=== PATIENT | female | born 1975 | race Caucasian/White ===

== ENCOUNTER 2016-08-28 19:38 | Emergency (ER) | payer OTHER ==
[2016-08-28 19:49] VITALS: BP 138/90; PULSE 83; TEMP 98.5; BMI 37.5
[2016-08-28] MEDS ORDERED: ALBUTEROL SO4 2.5/IPRATROPIUM 0.5 INH SOL 3 ML VIAL.NEB. NEB ONE (20:19)
--- NOTE | 2016-08-28 20:24 | PDOC ---
History of Present Illness - General Chief Complaint: Asthma Stated Complaint: ASTHMA Time Seen by Provider: 08/28/16 20:06 History Source: Patient Exam Limitations: No Limitations - History of Present Illness Initial Comments: 08/28/16 20:20 My Chief Complaint:, Wheezing, upper back discomfort, cough History of present illness: Pt. is a 41-year-old female with a history of asthma Of wheezing with shortness of breath and upper back discomfort with chest tightness since yesterday. Patient reports using her nebulizer once today. Patient also uses Advair discus 250 mcg/50 mcg 1 puff twice a day. Denies any fever. Patient reports feeling generally weaker than usual. Patient denies that anyone is sick in her home. Patient denies any recent travel. Timing/Duration: getting worse Severity: moderate Associated Symptoms: reports: cough (greenish), shortness of breath, other ( wheezing ) Past History - Past Medical History Allergies/Adverse Reactions: Allergies Allergy/AdvReac Type Severity Reaction Status Date / Time No Known Allergies Allergy Verified 08/28/16 19:47 Home Medications: Ambulatory Orders Albuterol 0.083% Nebulizer Ashli [Ventolin 0.083% Nebulizer Soln -] 1 neb NEB Q4H PRN #1 vial 08/28/16 Albuterol Sulfate Inhaler - [Ventolin HFA Inhaler -] 2 inh IH Q4H PRN #1 inh 01/06 Azithromycin [Zithromax 250mg Tablets -] 250 mg PO UTDICT #6 tab 08/28/16 Asthma: Yes - Immunization History Immunization Up to Date: Yes - Psycho/Social/Smoking Cessation Hx Anxiety: No Suicidal Ideation: No Smoking Status: No Smoking History: Never smoked Number of Cigarettes Smoked Daily: 0 Hx Alcohol Use: No Review of Systems - Review of Systems Able to Perform ROS?: Yes Constitutional: Yes: Weakness (generalized today ) HEENTM: Yes: Nose Congestion (slight) Respiratory: Yes: SOB with Exertion, Wheezing, Productive cough (greenish ) Cardiac (ROS): No: Symptoms Reported ABD/GI: No: Symptoms Reported : No: Symptoms Reported Musculoskeletal: Yes: Back Pain (b/l upper back ) Integumentary: No: Symptoms Reported Neurological: No: Symptoms reported *Physical Exam - Vital Signs Last Vital Signs Temp Pulse Resp BP Pulse Ox 98.5 F 83 20 138/90 98 08/28/16 19:47 08/28/16 19:47 08/28/16 19:47 08/28/16 19:47 08/28/16 19:47 - Physical Exam General Appearance: Yes: Appropriately Dressed HEENT: positive: TMs Normal, Nasal Congestion, Rhinorrhea (minimal b/l ). negative: Pharyngeal Erythema, Tonsillar Exudate, Tonsillar Erythema Neck: negative: Lymphadenopathy (R), Lymphadenopathy (L) Respiratory/Chest: positive: Decreased Breath Sounds (b/l ), Other (after neb CTA b/l ). negative: Accessory Muscle Use Cardiovascular: positive: Regular Rhythm, Regular Rate, S1, S2 Integumentary: positive: Normal Color Neurologic: positive: Alert, Normal Response, Responsive Medical Decision Making - Medical Decision Making 08/28/16 20:23 Pt. is a 41-year-old female with a history of asthma Of wheezing with shortness of breath and upper back discomfort with chest tightness since yesterday. Patient reports using her nebulizer once today. Patient also uses Advair discus 250 mcg/50 mcg 1 puff twice a day. Denies any fever. Patient reports feeling generally weaker than usual. Patient denies that anyone is sick in her home. Patient denies any recent travel. 08/28/16 20:25 asthma exacerbation PLAN: duoneb now azithromycin 250 mg 2 tabs today than one daily for following 4 days follow up with primary care provider within next 2 day s 08/28/16 20:48 feeling much better lungs CTA b/l *DC/Admit/Observation/Transfer Diagnosis at time of Disposition: Asthma exacerbation Qualifiers: Asthma severity: unspecified severity Qualified Code(s): J45.901 - Unspecified asthma with (acute) exacerbation - Discharge Dispostion Disposition: HOME Condition at time of disposition: Stable - Prescriptions Prescriptions: Albuterol 0.083% Nebulizer Ashli [Ventolin 0.083% Nebulizer Soln -] 1 neb NEB Q4H PRN #1 vial PRN Reason: Short Of Breath/Wheezing Albuterol Sulfate Inhaler - [Ventolin HFA Inhaler -] 2 inh IH Q4H PRN #1 inh PRN Reason: Short Of Breath/Wheezing Azithromycin [Zithromax 250mg Tablets -] 250 mg PO UTDICT #6 tab - Referrals Referrals: Anni Martines [Primary Care Provider] - - Patient Instructions Additional Instructions: Follow-up with your primary care provider within the next 2 days Return to emergency room if symptoms worsen any shortness of breath or any new symptoms develop Drink a lot a fluids and rest Use your pumps as previously ordered and nebulizer Patient voiced understanding of discharge instructions and all questions were answered
== END 2016-08-28 21:22 | disposition home or self-care (01) ==
LOC: JERFT 19:38
PROC: 3E0F7GC Introduction of Other Therapeutic Substance into Respiratory Tract, Via Natural or Artificial Opening (ICD-10-PCS; principal; 2016-08-28)
DX: J45.901 Unspecified asthma with (acute) exacerbation (principal)
CPT/HCPCS: 94640; 99281-25

== ENCOUNTER 2017-05-13 10:12 | Emergency (ER) | payer OTHER ==
[2017-05-13 10:22] VITALS: BMI 37.5
--- NOTE | 2017-05-13 14:18 | PDOC ---
History of Present Illness - General Chief Complaint: Rectal Bleed Stated Complaint: RECTAL BLEED Time Seen by Provider: 05/13/17 13:53 History Source: Patient - History of Present Illness Timing/Duration: reports: intermittent Past History - Past Medical History Allergies/Adverse Reactions: Allergies Allergy/AdvReac Type Severity Reaction Status Date / Time No Known Allergies Allergy Verified 05/13/17 10:17 Home Medications: Ambulatory Orders Albuterol 0.083% Nebulizer Ashli [Ventolin 0.083% Nebulizer Soln -] 1 neb NEB Q4H PRN #1 vial 08/28/16 Albuterol Sulfate Inhaler - [Ventolin HFA Inhaler -] 2 inh IH Q4H PRN #1 inh 01/06 Azithromycin [Zithromax 250mg Tablets -] 250 mg PO UTDICT #6 tab 08/28/16 Asthma: Yes COPD: No - Immunization History Immunization Up to Date: Yes - Suicide/Smoking/Psychosocial Hx Smoking Status: No Smoking History: Never smoked Have you smoked in the past 12 months: No Number of Cigarettes Smoked Daily: 0 Information on smoking cessation initiated: No Hx Alcohol Use: No Drug/Substance Use Hx: No Substance Use Type: None Review of Systems - Review of Systems Constitutional: No: Chills, Fever, Weakness Respiratory: No: Shortness of Breath Cardiac (ROS): No: Chest Pain ABD/GI: No: Constipated, Diarrhea, Nausea, Vomiting *Physical Exam - Vital Signs Last Vital Signs Temp Pulse Resp BP Pulse Ox 98.8 F 82 18 115/82 100 05/13/17 10:18 05/13/17 10:18 05/13/17 10:18 05/13/17 10:18 05/13/17 10:18 - Physical Exam General Appearance: Yes: Appropriately Dressed. No: Apparent Distress HEENT: positive: Normal Voice Neck: positive: Supple Respiratory/Chest: negative: Respiratory Distress Gastrointestinal/Abdominal: positive: Soft. negative: Tender Rectal Exam: positive: other (trace BRB mixed w/ brown stool, no melena, external hemorrhoid or fissure) ED Treatment Course - LABORATORY CBC & Chemistry Diagram: 05/13/17 14:20 05/13/17 14:20 Medical Decision Making - Medical Decision Making 05/13/17 14:09 42-year-old female, history of asthma, presents with bright red blood per rectum. Patient states she's had about 7 episodes of bright red blood with bowel movement since yesterday. Denies melena or hemorrhoids. States she also has some vague lower abdominal pain. No diarrhea, constipation, nausea, vomiting, fever or chills. Patient admits that she's had similar episode throughout the past year or 2 that usually self resolves and has never been medically evaluated. States she decided to come in this time because of the abdominal pain which she usually does not have. Patient has had an endoscopy in the past with negative results, but has never had a colonoscopy. Denies unexplained weight loss and no significant family history. See exam Stable GIB Well chino and stable in ED w/ benign abd Possible diverticulosis vs internal hemorrhoid -labs -anticipate discharge w/ PMD f/u 05/13/17 14:19 05/13/17 14:45 Blood work normal. Patient has remained well-appearing and stable in ED. Will discharge to follow-up with her primary care physician *DC/Admit/Observation/Transfer Diagnosis at time of Disposition: Hematochezia - Discharge Dispostion Disposition: HOME Condition at time of disposition: Good - Referrals Referrals: Anni Martines [Primary Care Provider] - - Patient Instructions Printed Discharge Instructions: DI for Rectal Bleeding, DI for Diverticulosis Additional Instructions: Carrington sangrado rectal posiblemente se deba a diverticulosis, que son desplazamientos en el colon que pueden deberse a la edad o a la baja cantidad de fibra en la dieta. Tambin puede tener hemorroides internas. Carrington anlisis de ivan fue normal. Si los sntomas empeoran y tiene dolor abdominal intenso, v mitos, fiebre, debilidad o mareos, regrese a la aric de emergencias inmediatamente. De lo contrario, hussein un seguimiento con carrington mdico Print Language: ERITREAN - Post Discharge Activity
[2017-05-13 14:29] LABS: BASO % 0.5 % (0-2.0); EOS % 6.8 % (0-4.5); HEMATOCRIT 40.3 % (32.4-45.2); HEMOGLOBIN 13.4 GM/dL (10.7-15.3); LYMPH % 30.4 % (8-40); MCH 29.1 pg (25.7-33.7); MCHC 33.2 g/dl (32.0-36.0); MEAN CELL VOLUME 87.8 fl (80-96); MEAN PLT VOLUME 8.9 fl (7.5-11.1); MONO % 5.7 % (3.8-10.2); NEUT % 56.6 % (42.8-82.8); PLATELET COUNT 285 K/MM3 (134-434); RBC 4.58 M/mm3 (3.60-5.2); RDW 13.3 % (11.6-15.6); WHITE BLOOD COUNT 10.1 K/mm3 (4.0-10.0)
[2017-05-13 14:51] LABS: ALBUMIN 3.6 g/dl (3.4-5.0); ALK PHOS 88 U/L (45-117); ANION GAP 7 (8-16); BILIRUBIN,TOTAL 0.6 mg/dL (0.2-1.0); BLOOD UREA NITROGEN 11 mg/dL (7-18); CALCIUM 8.9 mg/dL (8.5-10.1); CHLORIDE 105 mmol/L (98-107); CO2 27 mmol/L (21-32); CREATININE 0.8 mg/dL (0.55-1.02); GLUCOSE,RANDOM 85 mg/dL (74-106); POTASSIUM 4.3 mmol/L (3.5-5.1); SGOT/AST 9 U/L (15-37); SGPT/ALT 33 U/L (12-78); SODIUM 139 mmol/L (136-145); TOT PROT 7.4 g/dl (6.4-8.2)
[2017-05-13 16:06] VITALS: BP 110/75; PULSE 81; TEMP 98.1
== END 2017-05-13 16:30 | disposition home or self-care (01) ==
LOC: JER 10:12
DX: K92.1 Melena (principal); J45.909 Unspecified asthma, uncomplicated
CPT/HCPCS: 36415; 80053; 82272; 85025; 99283-25

== ENCOUNTER 2017-09-03 15:29 | Emergency (ER) | payer OTHER ==
[2017-09-03 15:46] VITALS: BP 152/78; PULSE 81; TEMP 98.4; BMI 37.8
--- NOTE | 2017-09-03 15:47 | PDOC ---
Rapid Medical Evaluation Time Seen by Provider: 09/03/17 15:43 Medical Evaluation: Allergies Allergy/AdvReac Type Severity Reaction Status Date / Time No Known Allergies Allergy Verified 09/03/17 15:42 09/03/17 15:43 I have performed a brief in-person evaluation of this patient. The patient presents with a chief complaint of: non productive coughing and pain in upper back, both sides since Saturday Reports using pump with no relief. Pertinent physical exam findings: NAD unlabored breathing, clear bilateral lungs, non tender chest I have ordered the following: chest xray The patient will proceed to the ED for further evaluation.
[2017-09-03] MEDS ORDERED: KETOROLAC TROMETHAMINE 60 MG/2 ML VIAL IM ONE (16:45)
[2017-09-03] MEDS ORDERED: TIZANIDINE HCL 4 MG TABLET PO ONE (16:46)
--- NOTE | 2017-09-03 16:47 | PDOC ---
History of Present Illness - General Chief Complaint: Respiratory Stated Complaint: BACK PAIN, SOB Time Seen by Provider: 09/03/17 15:43 - History of Present Illness Initial Comments: 42-year-old female presents for evaluation of back pain for 3 days after doing increased housework. She points to the area between her scapula as the area of her discomfort pain is described as achy exacerbated with motion relieved with rest free of radiation. 09/03/17 16:42 Past History - Past Medical History Allergies/Adverse Reactions: Allergies Allergy/AdvReac Type Severity Reaction Status Date / Time No Known Allergies Allergy Verified 09/03/17 15:42 Home Medications: Ambulatory Orders Cyclobenzaprine HCl [Flexeril 10 mg] 10 mg PO HS PRN #20 tablet 09/03/17 Asthma: Yes COPD: No - Immunization History Immunization Up to Date: Yes - Suicide/Smoking/Psychosocial Hx Smoking Status: No Smoking History: Never smoked Have you smoked in the past 12 months: No Number of Cigarettes Smoked Daily: 0 Hx Alcohol Use: No Drug/Substance Use Hx: No Substance Use Type: None Review of Systems - Review of Systems Musculoskeletal: Yes: Back Pain, Muscle Pain All Other Systems: Reviewed and Negative *Physical Exam - Vital Signs Last Vital Signs Temp Pulse Resp BP Pulse Ox 98.4 F 81 19 152/78 98 09/03/17 15:42 09/03/17 15:42 09/03/17 15:42 09/03/17 15:42 09/03/17 15:42 - Physical Exam Comments: Cervical spine skin color and temperature are normal. There is full nonpainful range of motion. No palpable spasm. Biceps triceps and brachial radialis reflexes are 2+ and symmetric bilaterally. There is 5 out of 5 strength and thumb extension abduction and wrist flexion and extension elbow flexion and extension. 5 out of 5 strength in deltoid. Negative Michael sign. Spurling maneuver is negative bilaterally. There are no gross sensory motor deficits. Neurovascularly intact. Lumbar spine skin color and temperature are normal. There is full nonpainful range of motion. 5 out of 5 strength in bilateral lower extremities. Patella and Achilles reflexes are 2+ and symmetric bilaterally. There is no clonus. Straight leg raise test is negative bilaterally. Thighs and calves are soft and nontender. There are no gross sensory motor deficits. Neurovascularly intact. She has tenderness and palpable spasm around the parents arrested musculature in the area of the levator scapula GENERAL: [The patient is awake, alert, and fully oriented, in no acute distress. ] HEAD: [Normal with no signs of trauma.] LUNGS: [Breath sounds equal, clear to auscultation bilaterally. No wheezes, and no crackles.] HEART: [Regular rate and rhythm, normal S1 and S2 without murmur, rub or gallop. ] ABDOMEN: [Soft, nontender, normoactive bowel sounds. No guarding, no rebound. No masses.] EXTREMITIES: [Normal range of motion, no edema. No clubbing or cyanosis. No cords, erythema, or tenderness.] PSYCH: [Normal mood, normal affect.] SKIN: [Warm, Dry, normal turgor, no rashes or lesions noted.] 09/03/17 16:43 Medical Decision Making - Medical Decision Making Patient was reevaluated after Toradol and Flexeril her symptoms have improved. 09/03/17 17:42 *DC/Admit/Observation/Transfer Diagnosis at time of Disposition: Muscle spasm - Discharge Dispostion Disposition: HOME Condition at time of disposition: Stable Decision to Admit order: No - Referrals Referrals: Anni Martines [Primary Care Provider] - Papo Gusman MD [Staff Physician] - - Patient Instructions Additional Instructions: Take Motrin for pain as well as Tylenol. I prescribed a muscle relaxer for it was well. Return to the emergency room if her symptoms worsen or go unresolved prior to follow-up with orthopedic surgery in 2-3 days. Your pain is muscular in nature and will require follow-up and additional treatment. - Post Discharge Activity
[2017-09-03] MEDS ORDERED: RANITIDINE HCL 150 MG TABLET (FP) PO ONE (16:49)
[2017-09-03] MEDS ORDERED: RANITIDINE HCL 150 MG TABLET (FP) ONE (17:03)
[2017-09-03] MEDS ORDERED: KETOROLAC TROMETHAMINE 60 MG/2 ML VIAL ONE (17:03)
== END 2017-09-03 18:01 | disposition home or self-care (01) ==
LOC: JERFT 15:29
PROC: 3E0233Z Introduction of Anti-inflammatory into Muscle, Percutaneous Approach (ICD-10-PCS; principal; 2017-09-03)
DX: M62.830 Muscle spasm of back (principal)
CPT/HCPCS: 71045-TC-FY; 96372; 99281-25

== ENCOUNTER 2017-10-05 12:50 | Emergency (ER) | payer OTHER ==
[2017-10-05 13:04] VITALS: BP 141/86; PULSE 77; TEMP 98.3; BMI 38.0
[2017-10-05] MEDS ORDERED: SODIUM CHLORIDE 1,000 ML IV SCH (14:00)
--- NOTE | 2017-10-05 14:07 | PDOC ---
History of Present Illness - History of Present Illness Initial Comments: Patient is a is a 42 liberian-speaking F, with PMHx of asthma, chronic kidney disease, who presents today for 1 day of hematochezia. She reports 3 days of abdominal pain that has since resolved. She reports 1 day of loose bloody stools. Patient states that 3 months ago she had a colonoscopy that was normal. She has a scheduled endoscopy on December 25. She denies prior history of hemorrhoids. She denies recent nausea, vomit, fever , chills. PCP: Conrad Hutton GI: Ervin Frazier 10/05/17 14:17 <Agnieszka Mcclure - Last Filed: 10/05/17 14:17> - General History Source: Patient, Family Exam Limitations: No Limitations <Salo Telles - Last Filed: 10/05/17 18:56> - General Chief Complaint: Rectal Bleed Stated Complaint: RECTAL BLEEDING Time Seen by Provider: 10/05/17 13:35 Past History <Agnieszka Mcclure - Last Filed: 10/05/17 14:17> - Past Medical History Asthma: Yes COPD: No - Immunization History Immunization Up to Date: Yes - Suicide/Smoking/Psychosocial Hx Smoking Status: No Smoking History: Never smoked Have you smoked in the past 12 months: No Number of Cigarettes Smoked Daily: 0 Hx Alcohol Use: No Drug/Substance Use Hx: No Substance Use Type: None <Salo Telles - Last Filed: 10/05/17 18:56> - Past Medical History Allergies/Adverse Reactions: Allergies Allergy/AdvReac Type Severity Reaction Status Date / Time No Known Allergies Allergy Verified 10/05/17 13:04 Home Medications: Ambulatory Orders Cyclobenzaprine HCl [Flexeril 10 mg] 10 mg PO HS PRN #20 tablet 09/03/17 Docusate Sodium [Colace] 100 mg PO Q8H PRN #21 capsule 10/05/17 Phenyleph/Mineral Oil/Petrolat [Preparation H Ointment] 1 applic RC BID #1 oint 10/05/17 Review of Systems - Review of Systems Comments:: GENERAL/CONSTITUTIONAL: No fever or chills. No weakness. HEAD, EYES, EARS, NOSE AND THROAT: No change in vision. No ear pain or discharge. No sore throat. CARDIOVASCULAR: No chest pain or shortness of breath. RESPIRATORY: No cough, wheezing, or hemoptysis. GASTROINTESTINAL: No nausea, vomiting, +diarrhea, +hematochezia, no constipation. GENITOURINARY: No dysuria, frequency, or change in urination. MUSCULOSKELETAL: No joint or muscle swelling or pain. No neck or back pain. SKIN: No rash NEUROLOGIC: No headache, vertigo, loss of consciousness, or change in strength/ sensation. ENDOCRINE: No increased thirst. No abnormal weight change. HEMATOLOGIC/LYMPHATIC: No anemia, easy bleeding, or history of blood clots. ALLERGIC/IMMUNOLOGIC: No hives or skin allergy. 10/05/17 14:19 <Agnieszka Mcclure - Last Filed: 10/05/17 14:17> *Physical Exam - Vital Signs Last Vital Signs Temp Pulse Resp BP Pulse Ox 98.3 F 77 18 141/86 99 10/05/17 13:02 10/05/17 13:02 10/05/17 13:02 10/05/17 13:02 10/05/17 13:02 - Physical Exam Comments: GENERAL: Awake, alert, and fully oriented, in no acute distress HEAD: No signs of trauma EYES: PERRLA, EOMI, sclera anicteric, conjunctiva clear ENT: Auricles normal inspection, hearing grossly normal, nares patent. Moist mucosa NECK: Normal ROM, supple, no lymphadenopathy, JVD, or masses LUNGS: Breath sounds equal, clear to auscultation bilaterally. No wheezes, and no crackles HEART: Regular rate and rhythm, normal S1 and S2, no murmurs, rubs or gallops ABDOMEN: Soft, obese, nontender. No guarding, no rebound. No masses EXTREMITIES: Normal range of motion, no edema. No clubbing or cyanosis. No cords, erythema, or tenderness NEUROLOGICAL: Cranial nerves II through XII grossly intact. Normal speech. SKIN: Warm, Dry, normal turgor, no rashes or lesions noted. Rectal Exam: No stool or blood on glove. Painless small external hemorrhoids. Good rectal tone. 10/05/17 14:20 <Agnieszka Mcclure - Last Filed: 10/05/17 14:17> - Vital Signs Last Vital Signs Temp Pulse Resp BP Pulse Ox 98.3 F 77 18 141/86 99 10/05/17 13:02 10/05/17 13:02 10/05/17 13:02 10/05/17 13:02 10/05/17 13:02 <Salo Telles - Last Filed: 10/05/17 18:56> ED Treatment Course - LABORATORY CBC & Chemistry Diagram: 10/05/17 13:46 10/05/17 13:46 - RADIOLOGY Radiology Studies Ordered: Category Date Time Status ABDOMEN & PELVIS CT WITH CONTR [CT] Stat CT Scan 10/05/17 13:46 Ordered <Salo Telles - Last Filed: 10/05/17 18:56> Medical Decision Making - Medical Decision Making 10/05/17 14:07 A portion of this note was documented by scribe services under my direction. I have reviewed the details of the note, within reason, and agree with the documentation with the following case summary and management plan written by me. Patient treated in the ED. Nursing notes are reviewed and incorporated into the medical decision-making. Vital signs reviewed. Peripheral IV access obtained by the nurse, laboratory studies are drawn and sent, reviewed and interpreted by myself. Vital Signs Temp Pulse Resp BP Pulse Ox 98.3 F 77 18 141/86 99 10/05/17 13:02 10/05/17 13:02 10/05/17 13:02 10/05/17 13:02 10/05/17 13:02 42-year-old female with past medical history of asthma, chronic kidney disease presents with rectal bleeding. The patient reports that for the last 3 days she' s been having for quadrant discomfort and today had loose stools with blood in them. Reports that the rectal movement was bloodless. No fevers or chills. Denies abdominal pain now. Patient did have a colonoscopy reportedly [address] Frazier was reportedly negative. Patient is scheduled for an endoscopy in December. We'll need to further investigate this with a CAT scan and pelvis. Differential includes hemorrhoidal bleed, diverticular bleed, colon cancer. We'll obtain labs , CAT scan and pelvis and reassess. 10/05/17 18:45 CBC, BMP 10/05/17 13:46 10/05/17 13:46 CMP Sodium 139 mmol/L (136-145) 10/05/17 13:46 Potassium 4.4 mmol/L (3.5-5.1) 10/05/17 13:46 Chloride 107 mmol/L (98-107) 10/05/17 13:46 Carbon Dioxide 27 mmol/L (21-32) 10/05/17 13:46 Anion Gap 5 (8-16) L 10/05/17 13:46 BUN 11 mg/dL (7-18) 10/05/17 13:46 Creatinine 0.8 mg/dL (0.55-1.02) 10/05/17 13:46 Creat Clearance w eGFR > 60 (>60) 10/05/17 13:46 Random Glucose 82 mg/dL (74-106) 10/05/17 13:46 Calcium 8.6 mg/dL (8.5-10.1) 10/05/17 13:46 Total Bilirubin 0.7 mg/dL (0.2-1.0) 10/05/17 13:46 AST 6 U/L (15-37) L 10/05/17 13:46 ALT 25 U/L (12-78) 10/05/17 13:46 Alkaline Phosphatase 83 U/L (45-117) 10/05/17 13:46 Total Protein 6.9 g/dl (6.4-8.2) 10/05/17 13:46 Albumin 3.2 g/dl (3.4-5.0) L 10/05/17 13:46 Lipase 704 U/L (73-393) H 10/05/17 13:46 Urine Test Results Urine Color Ltyellow 10/05/17 13:46 Urine Appearance Clear 10/05/17 13:46 Urine pH 7.0 (5.0-8.0) 10/05/17 13:46 Ur Specific [place] 1.016 (1.001-1.035) 10/05/17 13:46 Urine Protein Negative (NEGATIVE) 10/05/17 13:46 Urine Glucose (UA) Negative (NEGATIVE) 10/05/17 13:46 Urine Ketones Negative (NEGATIVE) 10/05/17 13:46 Urine Blood 1+ (NEGATIVE) H 10/05/17 13:46 Urine Nitrite Negative (NEGATIVE) 10/05/17 13:46 Urine Bilirubin Negative (<2.0 mg/dL) 10/05/17 13:46 Ur Leukocyte Esterase Negative (NEGATIVE) 10/05/17 13:46 Ur Epithelial Cells Rare /HPF (FEW) 10/05/17 13:46 Pt with elevated lipase but without nausea, vomiting, or abdominal pain. No CT evidence of pancreatitis, diverticula, or colitis. I do not suspect pancreatitis at this time. Will have patient follow up with DR. Frazier. The CT did incidentally find a potential left ovary lesion. Transvaginal ultrasound obtained and results pending. If the transvaginal ultrasound is unremarkable, the patient can be discharged home. I advised the patient that she should follow up with Dr. Frazier. It may be possible that the bleeding was from the hemorrhoids. Will prescribe colace and sitz bath and have the patient call Dr. Frazier. Pt will benefit from an evaluation by GI. Pt verbalizes understanding and agrees with plan. <Salo Telles - Last Filed: 10/05/17 18:56> *DC/Admit/Observation/Transfer - Attestations Scribe Attestion: 10/05/17 14:22 Documentation prepared by Agnieszka Mcclure, acting as medical office technician for Salo Telles MD. <Agnieszka Mcclure - Last Filed: 10/05/17 14:17> <Salo Telles - Last Filed: 10/05/17 18:56> Diagnosis at time of Disposition: Rectal bleed - Discharge Dispostion Condition at time of disposition: Stable - Prescriptions Prescriptions: Docusate Sodium [Colace] 100 mg PO Q8H PRN #21 capsule PRN Reason: Stool softener Phenyleph/Mineral Oil/Petrolat [Preparation H Ointment] 1 applic RC BID #1 oint - Referrals Referrals: Anni Martines [Primary Care Provider] - Ervin Frazier MD [Staff Physician] - - Patient Instructions Printed Discharge Instructions: DI for Rectal Bleeding Additional Instructions: Please use a sitz bath every 8 hours for several times a day. Use the stool softener colace 100 mg every 8 hours. Use preparation H every 12 hours for hemorrhoids. Please follow up with Dr. Frazier. Call on Saturday to schedule an appointment. You may potentially need another colonscopy. Print Language: BELARUSIAN - Post Discharge Activity
[2017-10-05 14:28] LABS: BASO % 0.6 % (0-2.0); EOS % 5.3 % (0-4.5); HEMATOCRIT 38.8 % (32.4-45.2); HEMOGLOBIN 13.1 GM/dL (10.7-15.3); LYMPH % 25.7 % (8-40); MCH 29.4 pg (25.7-33.7); MCHC 33.9 g/dl (32.0-36.0); MEAN CELL VOLUME 86.7 fl (80-96); MEAN PLT VOLUME 9.1 fl (7.5-11.1); MONO % 6.1 % (3.8-10.2); NEUT % 62.3 % (42.8-82.8); PLATELET COUNT 289 K/MM3 (134-434); RBC 4.47 M/mm3 (3.60-5.2); RDW 13.7 % (11.6-15.6); WHITE BLOOD COUNT 11.4 K/mm3 (4.0-10.0)
[2017-10-05 14:52] LABS: ALBUMIN 3.2 g/dl (3.4-5.0); ALK PHOS 83 U/L (45-117); ANION GAP 5 (8-16); BILIRUBIN,TOTAL 0.7 mg/dL (0.2-1.0); BLOOD UREA NITROGEN 11 mg/dL (7-18); CALCIUM 8.6 mg/dL (8.5-10.1); CHLORIDE 107 mmol/L (98-107); CO2 27 mmol/L (21-32); CREATININE 0.8 mg/dL (0.55-1.02); GLUCOSE,RANDOM 82 mg/dL (74-106); POTASSIUM 4.4 mmol/L (3.5-5.1); SGOT/AST 6 U/L (15-37); SGPT/ALT 25 U/L (12-78); SODIUM 139 mmol/L (136-145); TOT PROT 6.9 g/dl (6.4-8.2)
[2017-10-05 14:53] LABS: LIPASE 704 U/L (73-393)
[2017-10-05 14:54] LABS: INR 1.06 (0.82-1.09)
[2017-10-05 14:57] LABS: ACTIVATED PTT 32.7 SECONDS (25.2-36.5)
[2017-10-05 15:14] LABS: URINE APPEARANCE CLEAR; URINE BILIRUBIN NEGATIVE (<2.0 mg/dL); URINE COLOR LTYELLOW; URINE GLUCOSE (UA) NEGATIVE (NEGATIVE); URINE KETONE NEGATIVE (NEGATIVE); URINE LEUK ESTERASE NEGATIVE (NEGATIVE); URINE NITRITE NEGATIVE (NEGATIVE); URINE PROTEIN NEGATIVE (NEGATIVE); URINE UROBILINOGEN NEGATIVE mg/dL (0.2-1.0)
[2017-10-05 15:50] LABS: EPI CELLS RARE /HPF (FEW)
[2017-10-05 15:53] LABS: HCG,QUALITATIVE URINE NEGATIVE
--- NOTE | 2017-10-05 20:16 | PDOC ---
*Physical Exam - Vital Signs Last Vital Signs Temp Pulse Resp BP Pulse Ox 98.3 F 77 18 141/86 99 10/05/17 13:02 10/05/17 13:02 10/05/17 13:02 10/05/17 13:02 10/05/17 13:02 ED Treatment Course - LABORATORY CBC & Chemistry Diagram: 10/05/17 13:46 10/05/17 13:46 - ADDITIONAL ORDERS Additional order review: Laboratory Results 10/05/17 10/05/17 10/05/17 14:25 14:22 13:46 PT with INR 12.00 INR 1.06 PTT (Actin FS) 32.7 Sodium 139 Potassium 4.4 Chloride 107 Carbon Dioxide 27 Anion Gap 5 L BUN 11 Creatinine 0.8 Creat Clearance w eGFR > 60 Random Glucose 82 Calcium 8.6 Total Bilirubin 0.7 AST 6 L ALT 25 Alkaline Phosphatase 83 Total Protein 6.9 Albumin 3.2 L Lipase 704 H Urine Color Urine Appearance Urine pH Ur Specific [place] Urine Protein Urine Glucose (UA) Urine Ketones Urine Blood Urine Nitrite Urine Bilirubin Urine Urobilinogen Ur Leukocyte Esterase Urine WBC (Auto) Urine RBC (Auto) Ur Epithelial Cells Urine HCG, Qual Stool Occult Blood Blood Type A POSITIVE Antibody Screen Positive H Antibody Identification Cold aggluitin Antigen Identification No Result Required. 10/05/17 10/05/17 13:46 13:45 PT with INR INR PTT (Actin FS) Sodium Potassium Chloride Carbon Dioxide Anion Gap BUN Creatinine Creat Clearance w eGFR Random Glucose Calcium Total Bilirubin AST ALT Alkaline Phosphatase Total Protein Albumin Lipase Urine Color Ltyellow Urine Appearance Clear Urine pH 7.0 Ur Specific [place] 1.016 Urine Protein Negative Urine Glucose (UA) Negative Urine Ketones Negative Urine Blood 1+ H Urine Nitrite Negative Urine Bilirubin Negative Urine Urobilinogen Negative Ur Leukocyte Esterase Negative Urine WBC (Auto) 1 Urine RBC (Auto) 3 Ur Epithelial Cells Rare Urine HCG, Qual Negative Stool Occult Blood Negative Blood Type Antibody Screen Antibody Identification Antigen Identification 10/05/17 13:46 RBC 4.47 MCV 86.7 MCHC 33.9 RDW 13.7 MPV 9.1 Neutrophils % 62.3 Lymphocytes % 25.7 Monocytes % 6.1 Eosinophils % 5.3 H Basophils % 0.6 Medical Decision Making - Medical Decision Making 10/05/17 20:14 I received this patient on sign out Pending US US demonstrate 2.2x2.0x1.9 mass, fibroid Left ovarian follicle Pt can be discharged to home *DC/Admit/Observation/Transfer Diagnosis at time of Disposition: Rectal bleed - Discharge Dispostion Disposition: HOME Condition at time of disposition: Stable Decision to Admit order: No - Prescriptions Prescriptions: Docusate Sodium [Colace] 100 mg PO Q8H PRN #21 capsule PRN Reason: Stool softener Phenyleph/Mineral Oil/Petrolat [Preparation H Ointment] 1 applic RC BID #1 oint - Referrals Referrals: Anni Martines [Primary Care Provider] - Ervin Frazier MD [Staff Physician] - - Patient Instructions Printed Discharge Instructions: DI for Rectal Bleeding Additional Instructions: Please use a sitz bath every 8 hours for several times a day. Use the stool softener colace 100 mg every 8 hours. Use preparation H every 12 hours for hemorrhoids. Please follow up with Dr. Frazier. Call on Saturday to schedule an appointment. You may potentially need another colonscopy. Print Language: FINNISH - Post Discharge Activity
--- NOTE | 2017-10-06 08:56 | EKG ---
Test Reason : Blood Pressure : / mmHG Vent. Rate : 075 BPM Atrial Rate : 075 BPM P-R Int : 148 ms QRS Dur : 060 ms QT Int : 400 ms P-R-T Axes : 046 040 036 degrees QTc Int : 446 ms NORMAL SINUS RHYTHM NORMAL ECG WHEN COMPARED WITH ECG OF 15-APR-2014 10:26, NO SIGNIFICANT CHANGE WAS FOUND Confirmed by JANEL RIVERS MD ([id number]) on 10/06/2017 8:55:49 AM Referred By: Confirmed By:JANEL RIVERS MD
== END 2017-10-05 20:38 | disposition home or self-care (01) ==
LOC: JER 12:50
PROC: 3E0337Z Introduction of Electrolytic and Water Balance Substance into Peripheral Vein, Percutaneous Approach (ICD-10-PCS; principal; 2017-10-05)
DX: K62.5 Hemorrhage of anus and rectum (principal); K64.4 Residual hemorrhoidal skin tags; J45.909 Unspecified asthma, uncomplicated; N18.9 Chronic kidney disease, unspecified; R74.8 Abnormal levels of other serum enzymes
CPT/HCPCS: 36415; 74177-TC; 76830-TC; 76856-TC; 80053; 81003; 81015; 82272; 83690; 84703; 85025; 85610; 85730; 86850; 86870; 86900; 86901; 86902; 87086; 93005; 93010; 96360; 96361; 99283-25; J7030

== ENCOUNTER 2018-01-13 00:52 | Emergency (ER) | payer OTHER ==
[2018-01-13] MEDS ORDERED: ACETAMINOPHEN 325 MG TABLET (FP) PO ONE (01:37)
[2018-01-13] MEDS ORDERED: guaiFENesin/CODEINE 10 ML UNIT-DOSE CUPS PO ONE (01:38)
--- NOTE | 2018-01-13 01:45 | PDOC ---
History of Present Illness - General History Source: Patient Exam Limitations: No Limitations - History of Present Illness Initial Comments: 01/13/18 01:47 The patient is a 42 year old female with a past medical history of asthma who presents to the emergency department for evaluation of a 4 day history of coughing with associated back pain. The patient reports moderate back pain beginning since since with associated non productive cough. She reports an associated symptom of subjective fever. Patient reports taking nebulizer treatment at 8pm and tylenol earlier in the day. Patients LMP was on 01/10/18. Patients daughter is currently experiencing similar symptoms. The patient denies headache, dizziness, chills, nausea, vomiting, diarrhea, constipation, and any urinary symptoms. Allergies: NKDA Social History: No reported alcohol, cigarette, or drug use. Surgical History: Tubal ligation. PCP: Not on staff. <Myriam Sanchez - Last Filed: 01/13/18 01:47> <Sosa Moore - Last Filed: 01/13/18 02:24> - General Stated Complaint: BACK PAIN Time Seen by Provider: 01/13/18 01:28 Past History <Myriam Sanchez - Last Filed: 01/13/18 01:47> - Past Medical History Asthma: Yes COPD: No - Immunization History Immunization Up to Date: Yes - Suicide/Smoking/Psychosocial Hx Smoking Status: No Smoking History: Never smoked Have you smoked in the past 12 months: No Number of Cigarettes Smoked Daily: 0 Hx Alcohol Use: No Drug/Substance Use Hx: No Substance Use Type: None <Sosa Moore - Last Filed: 01/13/18 02:24> - Past Medical History Allergies/Adverse Reactions: Allergies Allergy/AdvReac Type Severity Reaction Status Date / Time No Known Allergies Allergy Verified 01/13/18 01:55 Home Medications: Ambulatory Orders Cyclobenzaprine HCl [Flexeril 10 mg] 10 mg PO HS PRN #20 tablet 09/03/17 Docusate Sodium [Colace] 100 mg PO Q8H PRN #21 capsule 10/05/17 Phenyleph/Mineral Oil/Petrolat [Preparation H Ointment] 1 applic RC BID #1 oint 10/05/17 Albuterol Sulfate Inhaler - [Ventolin Hfa Inhaler -] 1 - 2 inh PO Q4H PRN #1 inhaler 01/13/18 Guaifenesin [Robitussin] 100 mg PO Q6H PRN #60 ml 01/13/18 Review of Systems - Review of Systems Able to Perform ROS?: Yes Comments:: CONSTITUTIONAL: (+)fevers. Absent: chills, diaphoresis, generalized weakness, malaise, loss of appetite HEENT: Absent: rhinorrhea, nasal congestion, throat pain, throat swelling, difficulty swallowing, mouth swelling, ear pain, eye pain, visual Changes CARDIOVASCULAR: Absent: chest pain, syncope, palpitations, irregular heart rate, lightheadedness , peripheral edema RESPIRATORY: (+)Difficulty breathing. (+)Cough. Absent: dyspnea with exertion, orthopnea, wheezing, stridor, hemoptysis GASTROINTESTINAL: Absent: abdominal pain, abdominal distension, nausea, vomiting, diarrhea, constipation, melena, hematochezia GENITOURINARY: Absent: dysuria, frequency, urgency, hesitancy, hematuria, flank pain, genital pain MUSCULOSKELETAL: (+)back pain. Absent: myalgia, arthralgia, joint swelling SKIN: Absent: rash, itching, pallor HEMATOLOGIC/IMMUNOLOGIC: Absent: easy bleeding, easy bruising, lymphadenopathy, frequent infections ENDOCRINE: Absent: unexplained weight gain, unexplained weight loss, heat intolerance, cold intolerance NEUROLOGIC: Absent: headache, focal weakness or paresthesias, dizziness, unsteady gait, seizure, mental status changes, bladder or bowel incontinence PSYCHIATRIC: Absent: anxiety, depression, suicidal or homicidal ideation, hallucinations. <Myriam Sanchez - Last Filed: 01/13/18 01:47> *Physical Exam - Physical Exam Comments: GENERAL: Well developed, well nourished. Awake and alert. No acute distress. HEENT: (+)slightly erythematous oropharynx, no exudates. Normocephalic, atraumatic. PERRLA, EOMI. No conjunctival pallor. Sclera are non- icteric. Moist mucous membranes. NECK: Supple. Full ROM. No JVD. Carotid pulses 2+ and symmetric, without bruits. No thyromegaly. No lymphadenopathy. CARDIOVASCULAR: Regular rate and rhythm. No murmurs, rubs, or gallops. Distal pulses are 2+ and symmetric. PULMONARY: No evidence of respiratory distress. Lungs clear to auscultation bilaterally. No wheezing, rales or rhonchi. ABDOMINAL: Soft. Non-tender. Non-distended. No rebound or guarding. No organomegaly. Normoactive bowel sounds. MUSCULOSKELETAL Normal range of motion at all joints. No bony deformities or tenderness. No CVA tenderness. EXTREMITIES: No cyanosis. No clubbing. No edema. No calf tenderness. SKIN: Warm and dry. Normal capillary refill. No rashes. No jaundice. NEUROLOGICAL: Alert, awake, appropriate. Cranial nerves 2-12 intact. No deficits to light touch and temperature in face, upper extremities and lower extremities. No motor deficits in the in face, upper extremities and lower extremities. Normoreflexic in the upper and lower extremities. Normal speech. Toes are down- going bilaterally. Gait is normal without ataxia. PSYCHIATRIC: Cooperative. Good eye contact. Appropriate mood and affect. <Myriam Sanchez - Last Filed: 01/13/18 01:47> ED Treatment Course - RADIOLOGY Radiology Studies Ordered: Category Date Time Status CHEST PA & LAT [RAD] Stat Radiology 01/13/18 01:30 Taken <Sosa Moore - Last Filed: 01/13/18 02:24> *DC/Admit/Observation/Transfer - Attestations Scribe Attestion: Documentation prepared by Myriam Sanchez, acting as rn medical surgical for Sosa Moore MD. <Myriam Sanchez - Last Filed: 01/13/18 01:47> <Sosa Moore - Last Filed: 01/13/18 02:24> Diagnosis at time of Disposition: Cough, Musculoskeletal back pain - Discharge Dispostion Disposition: HOME Condition at time of disposition: Stable - Prescriptions Prescriptions: Albuterol Sulfate Inhaler - [Ventolin Hfa Inhaler -] 1 - 2 inh PO Q4H PRN #1 inhaler PRN Reason: Asthma Guaifenesin [Robitussin] 100 mg PO Q6H PRN #60 ml PRN Reason: Cough - Referrals Referrals: Ildefonso Jama MD [Primary Care Provider] - - Patient Instructions Printed Discharge Instructions: DI for Cough -- Adult Additional Instructions: please use your inhaler if you develop any wheezing take Tylenol or motrin for pain or fever return for any worsening symptoms seed cone picker your medication at your pharmacy - Post Discharge Activity
[2018-01-13 01:57] VITALS: BP 135/89; PULSE 74; TEMP 97.6; BMI 28.3
[2018-01-13] MEDS ORDERED: guaiFENesin/CODEINE 5 ML UNIT-DOSE CUPS PO ONE (02:00)
[2018-01-13] MEDS ORDERED: ACETAMINOPHEN 325 MG TABLET (FP) ONE (02:00)
== END 2018-01-13 02:33 | disposition home or self-care (01) ==
LOC: JER 00:52
DX: J45.909 Unspecified asthma, uncomplicated (principal)
CPT/HCPCS: 71046-TC-FY; 99283-25

== ENCOUNTER 2018-04-27 19:20 | Emergency (ER) | payer OTHER ==
[2018-04-27 19:26] VITALS: BP 113/66; PULSE 82; TEMP 97.9; BMI 38.4
[2018-04-27] MEDS ORDERED: predniSONE 20 MG TABLET (UD) PO ONE (20:24)
--- NOTE | 2018-04-27 20:26 | PDOC ---
History of Present Illness - General Chief Complaint: Cold Symptoms Stated Complaint: BACK PAIN/cough Time Seen by Provider: 04/27/18 19:56 History Source: Patient Exam Limitations: No Limitations - History of Present Illness Initial Comments: 04/27/18 20:24 HISTORY OF PRESENT ILLNESS: 43-year-old woman with past medical history of asthma (no intubations or hospitalizations) presents emergency department for evaluation of coughing and upper back pain for the past 4 days. Patient reports more she coughs the more the back pain was hurting and she noted she became more short of breath while doing daily activities. Patient denies any chest pain , headaches, nausea, vomiting, abdominal pain. No recent travel or sick contacts. PAST MEDICAL HISTORY: Asthma SURGICAL HISTORY: Denies ALLERGIES: No known drug allergies REVIEW OF SYSTEMS General/Constitutional: Denies fever or chills. Denies weakness, weight change. HEENT: Denies change in vision. Denies ear pain or discharge. Denies sore throat. Cardiovascular: Denies chest pain or shortness of breath. Respiratory: Dry cough. Denies wheezing or hemoptysis. Upper back pain- worse with coughing. Gastrointestinal: Denies nausea, vomiting, diarrhea or constipation. Denies rectal bleeding. Genitourinary: Denies dysuria, frequency, or change in urination. Musculoskeletal: Denies joint or muscle swelling or pain. Denies neck or back pain. Skin and breasts: Denies rash or easy bruising. Neurologic: Denies headache, vertigo, loss of consciousness, or loss of sensation. Psychiatric: Denies depression or anxiety. Endocrine: Denies increased thirst. Denies abnormal weight change. Hematologic/Lymphatic: Denies anemia, easy bleeding, or history of blood clots. Allergic/Immunologic: Denies hives or skin allergy. Denies latex allergy. PHYSICAL EXAM General Appearance: Well-appearing, appropriately dressed. No apparent distress , no intoxication. HEENT: EOMI, PERRLA, normal ENT inspection, normal voice, TMs normal, pharynx normal. No conjunctival pallor. No photophobia, scleral icterus. Neck: Supple. Trachea midline. No tenderness, rigidity, carotid bruit, stridor , lymphadenopathy, or thyromegaly. Respiratory/Chest: Lungs CTAB. No shortness of breath, chest tenderness, respiratory distress, accessory muscle use. Scattered expiratory wheezes present. Cardiovascular: RRR. S1, S2. No JVD, murmur, bradycardia, tachycardia. Past History - Past Medical History Allergies/Adverse Reactions: Allergies Allergy/AdvReac Type Severity Reaction Status Date / Time No Known Allergies Allergy Verified 04/27/18 19:26 Home Medications: Ambulatory Orders Albuterol Sulfate Inhaler - [Ventolin HFA Inhaler -] 1 - 2 inh PO Q4H #1 inhaler 04/27/18 Prednisone [Prednisone 50 MG TABLETS] 50 mg PO DAILY #4 tablet 04/27/18 Asthma: Yes COPD: No - Immunization History Immunization Up to Date: Yes - Suicide/Smoking/Psychosocial Hx Smoking Status: No Smoking History: Never smoked Have you smoked in the past 12 months: No Number of Cigarettes Smoked Daily: 0 Information on smoking cessation initiated: No Hx Alcohol Use: No Drug/Substance Use Hx: No Substance Use Type: None *Physical Exam - Vital Signs Last Vital Signs Temp Pulse Resp BP Pulse Ox 97.9 F 82 16 113/66 100 04/27/18 19:25 04/27/18 19:25 04/27/18 19:25 04/27/18 19:25 04/27/18 19:25 Moderate Sedation - Procedure Monitoring Vital Signs: Procedure Monitoring Vital Signs Temperature 97.9 F 04/27/18 19:25 Pulse Rate 82 04/27/18 19:25 Respiratory Rate 16 04/27/18 19:25 Blood Pressure 113/66 04/27/18 19:25 O2 Sat by Pulse Oximetry (%) 100 04/27/18 19:25 Medical Decision Making - Medical Decision Making 04/27/18 20:25 A/P: 43-year-old woman past medical history of asthma with wheezing, cough and upper back pain Speaking full sentences Scattered expiratory wheezes noted No accessory muscle use Prednisone, DuoNeb, reassess 04/27/18 21:33 Repeat lung exam reveals clear lungs and patient is currently pain-free. I will discharge the patient home with prescription for prednisone 50 mg for the next 4 days and albuterol MDI. I discussed the physical exam findings, ancillary test results and final diagnoses with the patient. I answered all of the patient's questions. The patient was satisfied with the care received and felt comfortable with the discharge plan and treatment plan. The patient will call their primary care physician within 24 hours to arrange follow-up and will return to the Emergency Department with any new, persistent or worsening symptoms. *DC/Admit/Observation/Transfer Diagnosis at time of Disposition: Asthma exacerbation Qualifiers: Asthma severity: mild Asthma persistence: intermittent Qualified Code(s): J45.21 - Mild intermittent asthma with (acute) exacerbation - Discharge Dispostion Disposition: HOME Condition at time of disposition: Stable Decision to Admit order: No - Prescriptions Prescriptions: Albuterol Sulfate Inhaler - [Ventolin HFA Inhaler -] 1 - 2 inh PO Q4H #1 inhaler Prednisone [Prednisone 50 MG TABLETS] 50 mg PO DAILY #4 tablet - Referrals - Patient Instructions Additional Instructions: Rest, drink lots of fluids: Teas, water, soups, Pedialyte Saltwater gargles Steamy showers/seem to face break up mucus Avoid contact with others until fevers and cough resolved Lots of handwashing and good hygiene Continue [id number] medications for symptomatic relief Tylenol or Motrin for fever and pain Prednisone as directed until completed Followup with private physician in one to 2 days Return to emergency department / pediatric hospital for worsened symptoms, fevers, dehydration - Post Discharge Activity
[2018-04-27] MEDS ORDERED: predniSONE 20 MG TABLET (UD) ONE (20:27)
[2018-04-27] MEDS ORDERED: ALBUTEROL SO4 2.5/IPRATROPIUM 0.5 INH SOL 3 ML VIAL.NEB. NEB ONE (20:27)
[2018-04-27] MEDS: ALBUTEROL SO4 2.5/IPRATROPIUM 0.5 INH SOL 3 ML VIAL.NEB. NEB SCH ×4 (20:32→21:15)
== END 2018-04-27 21:38 | disposition home or self-care (01) ==
LOC: JERFT 19:20
PROC: 3E0F7GC Introduction of Other Therapeutic Substance into Respiratory Tract, Via Natural or Artificial Opening (ICD-10-PCS; principal; 2018-04-27)
DX: J45.21 Mild intermittent asthma with (acute) exacerbation (principal)
CPT/HCPCS: 94640; 99281-25

== ENCOUNTER 2019-11-03 11:31 | Emergency (ER) | payer OTHER ==
[2019-11-03 11:34] VITALS: PULSE 80; TEMP 98.5; BMI 40.4
[2019-11-03] MEDS ORDERED: ACETAMINOPHEN 1000 MG/100 ML VIAL (NON FORMULARY) IVPB ONE (12:01)
[2019-11-03] MEDS ORDERED: ACETAMINOPHEN INJECTION 100 ML IVPB ONE (12:05)
[2019-11-03 12:18] LABS: BASO % 0.7 % (0-2.0); EOS % 8.2 % (0-4.5); HEMATOCRIT 37.9 % (32.4-45.2); HEMOGLOBIN 12.5 GM/dL (10.7-15.3); LYMPH % 27.9 % (8-40); MCH 27.8 pg (25.7-33.7); MCHC 33.1 g/dl (32.0-36.0); MEAN CELL VOLUME 84.2 fl (80-96); MEAN PLT VOLUME 9.2 fl (7.5-11.1); MONO % 8.1 % (3.8-10.2); NEUT % 55.1 % (42.8-82.8); PLATELET COUNT 297 K/MM3 (134-434); RDW 14.5 % (11.6-15.6); WHITE BLOOD COUNT 8.9 K/mm3 (4.0-10.0)
[2019-11-03 12:56] LABS: ALBUMIN 3.4 g/dl (3.4-5.0); BILIRUBIN,TOTAL 0.6 mg/dL (0.2-1); BLOOD UREA NITROGEN 20.6 mg/dL (7-18); CALCIUM 8.9 mg/dL (8.5-10.1); CREATININE 0.9 mg/dL (0.55-1.3); POTASSIUM 4.5 mmol/L (3.5-5.1); TOT PROT 7.1 g/dl (6.4-8.2)
--- NOTE | 2019-11-03 13:15 | PDOC ---
History of Present Illness - General Chief Complaint: Headache Stated Complaint: headache Time Seen by Provider: 11/03/19 11:56 - History of Present Illness Initial Comments: 11/03/19 13:14 44-year-old female with a past medical history of asthma presents for evaluation of headache x4 days. No shortness of breath cough she does complain of fever. She took Advil with minimal relief. No shortness of breath Past History - Medical History Allergies/Adverse Reactions: Allergies Allergy/AdvReac Type Severity Reaction Status Date / Time No Known Allergies Allergy Verified 04/27/18 19:26 Home Medications: Ambulatory Orders Albuterol Sulfate Inhaler - [Ventolin HFA Inhaler -] 1 - 2 inh PO Q4H #1 inhaler 04/27/18 Prednisone [Prednisone 50 MG TABLETS] 50 mg PO DAILY #4 tablet 04/27/18 Asthma: Yes COPD: No - Immunization History Immunization Up to Date: Yes - Psycho-Social/Smoking History Smoking Status: No Smoking History: Never smoked Have you smoked in the past 12 months: No Number of Cigarettes Smoked Daily: 0 - Substance Abuse Hx (Audit-C & DAST Scrn) How often the patient has a drink containing alcohol: Never Score: In Men: 4 or > Positive; In Women: 3 or > Positive: 0 Screen Result (Pos requires Nsg. Audit-10AR): Negative In the last yr the pt used illegal drug/Rx for NonMed reason: No Score: Yes response is considered Positive: 0 Screen Result (Positive result requires Nsg. DAST-10): Negative Review of Systems - Review of Systems Constitutional: Yes: Fever Neurological: Yes: Headache *Physical Exam - Vital Signs Last Vital Signs Temp Pulse Resp BP Pulse Ox 98.5 F 80 17 130/83 100 11/03/19 11:31 11/03/19 11:31 11/03/19 11:31 11/03/19 11:31 11/03/19 11:31 - Physical Exam 11/03/19 13:14 GENERAL: The patient is awake, alert, and fully oriented, in no acute distress. HEAD: Normal with no signs of trauma. EYES: sclera anicteric, conjunctiva clear. ENT: Ears normal tympanic membranes normal oropharynx clear uvula midline NECK: Normal range of motion LUNGS: Breath sounds equal, clear to auscultation bilaterally. No wheezes, and no crackles. HEART: S1 and S2 without murmur, rub or gallop. ABDOMEN: Soft, nontender, normoactive bowel sounds. No guarding, no rebound. No masses. EXTREMITIES: Normal range of motion, no edema. No clubbing or cyanosis. No cords, erythema, or tenderness. NEUROLOGICAL: Cranial nerves II through XII grossly intact. PSYCH: Normal mood, normal affect. SKIN: Warm, Dry, normal turgor, no rashes or lesions noted. ED Treatment Course - LABORATORY CBC & Chemistry Diagram: 11/03/19 12:03 11/03/19 12:03 - ADDITIONAL ORDERS Additional order review: Laboratory Results 11/03/19 11/03/19 12:03 12:03 Sodium 139 Potassium 4.5 Chloride 108 H Carbon Dioxide 26 Anion Gap 5 L BUN 20.6 H Creatinine 0.9 Est GFR (CKD-EPI)AfAm 89.50 Est GFR (CKD-EPI)NonAf 77.22 Random Glucose 90 Calcium 8.9 Total Bilirubin 0.6 AST 9 L ALT 31 Alkaline Phosphatase 80 Total Protein 7.1 Albumin 3.4 Serum , Qual Negative 11/03/19 12:03 RBC 4.50 MCV 84.2 MCHC 33.1 RDW 14.5 MPV 9.2 Neutrophils % 55.1 Lymphocytes % 27.9 Monocytes % 8.1 Eosinophils % 8.2 H Basophils % 0.7 - RADIOLOGY Radiology Studies Ordered: Category Date Time Status CHEST PA & LAT [RAD] Stat Radiology 11/03/19 11:57 Taken - Medications Given in the ED: ED Medications Discontinued Medications Generic Name Dose Route Start Last Admin Trade Name Tazq PRN Reason Stop Dose Admin Acetaminophen 1,000 mg 11/03/19 12:01 11/03/19 12:09 Ofirmev Injection - IVPB 11/03/19 12:02 1,000 mg ONCE ONE Administration Medical Decision Making - Medical Decision Making 11/03/19 13:14 Examination and chest x-ray are benign. Work-up negative. Mild eosinophilia. Follow-up with primary care physician no emergent intervention is necessary at this time. I have reviewed the pathophysiology with the patient. They are in agreement with the treatment plan all questions were answered to their satisfaction. Un derstanding for follow-up without fail was also conveyed to the patient. Again they are in agreement. Discharge - Discharge Information Problems reviewed: Yes Clinical Impression/Diagnosis: Headache Condition: Improved Disposition: HOME - Admission No - Follow up/Referral Referrals: Ildefonso Jama MD [Primary Care Provider] - - Patient Discharge Instructions Additional Instructions: Tylenol and Motrin for headaches return to the emergency room for worsening symptoms and without fail follow-up with your primary care physician in 1 to 2 days for further evaluation and treatment options. - Post Discharge Activity
[2019-11-03 13:26] VITALS: BP 128/72
== END 2019-11-03 13:25 | disposition home or self-care (01) ==
LOC: JER 11:31
PROC: 3E033GC Introduction of Other Therapeutic Substance into Peripheral Vein, Percutaneous Approach (ICD-10-PCS; principal; 2019-11-03)
DX: R51 Headache (principal)
CPT/HCPCS: 36415; 71046-TC-FY; 80053; 84703; 85025; 96374; 99284-25; J0131

== ENCOUNTER 2023-10-08 17:56 | Emergency (ER) | payer OTHER ==
[2023-10-08 18:06] VITALS: BP 143/86; PULSE 80; RESP 18; TEMP 98.4; BMI 34.0
[2023-10-08] MEDS ORDERED: ACETAMINOPHEN 500 MG TABLET (FP) ONE (19:11)
[2023-10-08] MEDS: ACETAMINOPHEN 500 MG TABLET (FP) PO ONE (19:12)
[2023-10-08 19:20] LABS: THROAT:GRP A STREP NOT DETECTED (NOTDETECTED)
[2023-10-08] MEDS ORDERED: IBUPROFEN 400 MG TABLET (FP) PO ONE (20:28)
[2023-10-08] MEDS: IBUPROFEN 400 MG TABLET (FP) PO ONE (20:29)
== END 2023-10-08 20:47 | disposition home or self-care (01) ==
LOC: JERFT 17:56
DX: U07.1 COVID-19 (principal); R51.9 Headache, unspecified; R52 Pain, unspecified; J02.9 Acute pharyngitis, unspecified; R09.81 Nasal congestion; R05.9 Cough, unspecified; R68.83 Chills (without fever); R07.89 Other chest pain
CPT/HCPCS: 0241U-QW; 87651; 99283-25

== ENCOUNTER 2024-05-19 04:10 | Day surgery (SDC) | payer OTHER ==
[2024-05-15 16:23] VITALS: BMI 36.3
[2024-05-19 08:32] VITALS: RESP 20
[2024-05-19] MEDS ORDERED: MIDAZOLAM HCL 2 MG/2 ML SINGLE DOSE VIAL ONE (09:52)
[2024-05-19] MEDS: DEXAMETHASONE SOD PHOSPHATE 10 MG/1 ML VIAL IVPUSH ONE (10:00)
[2024-05-19] MEDS: BUPIVACAINE HCL/PF 0.25% (2.5MG/ML) 10 ML VIAL IJ ONE (10:00)
[2024-05-19] MEDS: LIDOCAINE HCL 1% PRESERVATIVE FREE - 30ML VIAL IJ ONE (10:00)
[2024-05-19] MEDS: IOHEXOL 180 MG/1 ML ML IJ ONE (10:00)
[2024-05-19 11:51] VITALS: TEMP 97.3
[2024-05-19 11:53] VITALS: BP 125/78; PULSE 72
== END 2024-05-19 11:33 | disposition home or self-care (01) ==
LOC: JASU-SURG 04:10
PROVIDERS: ATTEND Physical Medicine & Rehabilitation
PROC: 3E0R3BZ Introduction of Anesthetic Agent into Spinal Canal, Percutaneous Approach (ICD-10-PCS; 2024-05-19)
PROC: 3E0R33Z Introduction of Anti-inflammatory into Spinal Canal, Percutaneous Approach (ICD-10-PCS; principal; 2024-05-19 10:00)
DX: M54.16 Radiculopathy, lumbar region (principal); M54.50 Low back pain, unspecified
CPT/HCPCS: 76000-TC-FY; 81025; J1100

== ENCOUNTER 2024-08-19 02:01 | Observation (INO) | payer OTHER ==
[2024-08-19] MEDS ORDERED: ACETAMINOPHEN 325 MG TABLET (FP) ONE (02:31)
[2024-08-19] MEDS: ACETAMINOPHEN 325 MG TABLET (FP) PO ONE (02:37)
[2024-08-19 02:42] LABS: ABSOLUTE IMMATURE GRANULOCYTES 0.03 x10^3/uL (0.0-0.031); BASOPHILS # 0.08 x10^3/uL (0.01-0.08); EOSINOPHIL % 10.7 % (0.7-5.8); EOSINOPHILS # 1.07 x10^3/uL (0.04-0.36); HEMOGLOBIN 10.1 g/dL (11.2-15.7); MCHC 30.6 g/dl (32.2-35.5); MEAN CELL VOLUME 72.8 fl (79.4-94.8); MEAN PLT VOLUME 10.3 fl (9.4-12.3); MONOCYTE # 0.62 x10^3/uL (0.24-0.86); MONOCYTE % 6.2 % (4.7-12.5); PLATELET COUNT 363 x10^3/uL (182-369); RDW 17.2 % (12.2-17.1)
[2024-08-19 02:53] LABS: INR 1.09 (0.83-1.09); PROTHROMBIN TIME (PATIENT) 11.9 SEC (9.7-13.0)
[2024-08-19 02:56] LABS: ACTIVATED PTT 31.6 SECONDS (25.2-36.5)
[2024-08-19 03:10] LABS: CHLORIDE 96 mmol/L (98-107); SODIUM 135 mmol/L (136-145)
[2024-08-19 03:11] LABS: POTASSIUM 2.9 mmol/L (3.5-5.1)
[2024-08-19 03:12] LABS: CALCIUM 9.2 mg/dL (8.5-10.1)
[2024-08-19 03:13] LABS: ALBUMIN 3.5 g/dl (3.4-5.0); ANION GAP 9 mmol/L (4-13); BLOOD UREA NITROGEN 21.8 mg/dL (7-18); CO2 30 mmol/L (21-32); GLUCOSE,RANDOM 106 mg/dL (74-106); MAGNESIUM 2.2 mg/dL (1.8-2.4)
[2024-08-19 03:16] LABS: CREATININE 0.9 mg/dL (0.55-1.3); SGOT/AST 11 U/L (15-37); SGPT/ALT 30 U/L (13-61)
[2024-08-19 03:17] LABS: BILIRUBIN,TOTAL 0.5 mg/dL (0.2-1)
[2024-08-19 03:18] LABS: TOT PROT 7.6 g/dl (6.4-8.2)
[2024-08-19 03:19] LABS: ALK PHOS 100 U/L (45-117)
[2024-08-19] MEDS ORDERED: KCL 10 MEQ IVPB 10 MEQ/100 ML INFUS.BAG IVPB ONE (03:54)
[2024-08-19] MEDS ORDERED: POTASSIUM CHLORIDE ORAL LIQUID 20 MEQ/15 ML ONE (03:54)
[2024-08-19] MEDS: POTASSIUM CHLORIDE ORAL LIQUID 20 MEQ/15 ML PO ONE (04:06)
[2024-08-19] MEDS: KCL 20 MEQ PREMIX BAG 20 MEQ/100 ML INFUS.BAG IVPB ONE (05:00)
[2024-08-19] MEDS: KCL 10 MEQ IVPB 10 MEQ/100 ML INFUS.BAG IVPB SCH (05:01)
[2024-08-19] MEDS ORDERED: DOCUSATE SODIUM 100 MG CAPSULE (FP) PO PRN (05:33)
[2024-08-19] MEDS: SODIUM CHLORIDE 0.9%/KCL 20 MEQ/1,000 ML INFUS.BAG IV SCH (06:30)
[2024-08-19] MEDS ORDERED: ALBUTEROL SO4 HFA INHALER IH PRN (07:22)
[2024-08-19] MEDS ORDERED: PANTOPRAZOLE 40 MG TABLET PO SCH (10:00)
[2024-08-19] MEDS: FLUTICASONE/UMECLIDIN/VILANTER(100-62.5-25 TRELEGY ELLIPTA) INAHLER IH SCH (10:21)
[2024-08-19] MEDS: CycloBENZAprine HCL 10 MG TABLET (FP) PO SCH (10:21)
[2024-08-19] MEDS: PANTOPRAZOLE 20 MG TABLET PO SCH (10:21)
[2024-08-19] MEDS: ACETAMINOPHEN 500 MG TABLET (FP) PO PRN (13:04)
[2024-08-19] MEDS: GABAPENTIN 300 MG CAPSULE PO SCH (13:04)
[2024-08-19 13:22] VITALS: BMI 35.2
[2024-08-19] MEDS: MONTELUKAST NA 10 MG TABLET PO SCH (21:26)
[2024-08-19] MEDS: DOCUSATE SODIUM 100 MG CAPSULE (FP) PO SCH (21:26)
[2024-08-20 07:18] LABS: ABSOLUTE IMMATURE GRANULOCYTES 0.03 x10^3/uL (0.0-0.031); BASOPHILS # 0.06 x10^3/uL (0.01-0.08); EOSINOPHIL % 12.4 % (0.7-5.8); EOSINOPHILS # 1.14 x10^3/uL (0.04-0.36); HEMATOCRIT 33.4 % (34.1-44.9); HEMOGLOBIN 10.1 g/dL (11.2-15.7); MCHC 30.2 g/dl (32.2-35.5); MEAN CELL VOLUME 74.6 fl (79.4-94.8); MEAN PLT VOLUME 10.6 fl (9.4-12.3); MONOCYTE # 0.58 x10^3/uL (0.24-0.86); MONOCYTE % 6.3 % (4.7-12.5); PLATELET COUNT 384 x10^3/uL (182-369); RDW 17.7 % (12.2-17.1)
[2024-08-20 07:48] LABS: POTASSIUM 3.6 mmol/L (3.5-5.1)
[2024-08-20 07:52] LABS: BLOOD UREA NITROGEN 14.6 mg/dL (7-18); CALCIUM 8.6 mg/dL (8.5-10.1)
[2024-08-20 07:56] LABS: CREATININE 0.7 mg/dL (0.55-1.3)
[2024-08-20 11:59] VITALS: BP 135/60; PULSE 88; RESP 22; TEMP 98.1
[2024-08-20 13:20] LABS: N-TERMINAL BNP 31.3 pg/ml (5-125)
== END 2024-08-20 12:38 | disposition home or self-care (01) ==
LOC: JER 02:01 → JERBED 04:44 → J4W 06:32
PROVIDERS: ADMIT Internal Medicine; ATTEND Internal Medicine
PROC: 3E033GC Introduction of Other Therapeutic Substance into Peripheral Vein, Percutaneous Approach (ICD-10-PCS; principal; 2024-08-19)
DX: E87.6 Hypokalemia (principal); J45.909 Unspecified asthma, uncomplicated; R00.2 Palpitations; D53.9 Nutritional anemia, unspecified; M54.12 Radiculopathy, cervical region; I10 Essential (primary) hypertension; M54.17 Radiculopathy, lumbosacral region; F32.A Depression, unspecified; Z87.891 Personal history of nicotine dependence; R07.9 Chest pain, unspecified; Z90.79 Acquired absence of other genital organ(s)
CPT/HCPCS: 36415; 71045-TC-FY; 80048; 80053; 80061; 82180; 82607; 82746; 83036; 83735; 83880; 84439; 84443; 84484; 85025; 85610; 85730; 93005; 93010; 93306-TC; 96365; 99285-25; G0378